=== PATIENT | female | born 1930 | race Asian ===

== ENCOUNTER 2017-10-19 11:47 | Emergency (ER) | payer OTHER ==
[~2017-10-19] VITALS: Ht 152.4 cm; Wt 55.4 kg
[~2017-10-19 11:47] MED LIST: FSM70 PO; IBUP-103 PO; MULTTAB58 PO
[2017-10-19 11:55] VITALS: TEMP 37.3; Ht 152.4 cm; Wt 55.4 kg
[2017-10-19 12:16] VITALS: O2SAT 99
[2017-10-19] MEDS ORDERED: ONDANSETRON INJ 2 MG/ML 2 ML VIAL IV STA ×2 (12:35→14:08)
[2017-10-19 12:37] LABS: BASO % 0.2 %; BASO ABS # 0.02 K/uL (0-0.2); EOS % 0.5 %; EOS ABS # 0.05 K/uL (0-0.5); HEMOGLOBIN 13.4 g/dL (12.0-16.0); IG# 0.02 K/uL (0.00-0.02); LYMPH % 21.6 %; MEAN CELL VOLUME 95.5 fL (80-100); MEAN CORPUSCULAR HGB CONC 33.5 g/dl (32-36); MEAN PLATELET VOLUME 11.3 fL (7.4-10.4); MONO % 8.8 %; MONO ABS # 0.81 K/uL (0.11-0.59); NEUT % 68.7 %; NEUT ABS # 6.34 K/uL (1.4-6.5); PLATELET COUNT 210 K/uL (130-400); RED CELL DISTRIBUTION WIDTH CV 12.5 % (11.5-14.5); RED CELL DISTRIBUTION WIDTH SD 42.9 fL (36.4-46.3); WHITE BLOOD COUNT 9.24 K/uL (4.8-10.8)
--- NOTE | 2017-10-19 12:37 | DIAGNOSTIC IMAGING REPORT ---
CHEST ONE VIEW PORTABLE HISTORY: EVALUATE WEAKNESS COMPARISON: Chest 11/12/2010. FINDINGS: Low lung volumes. The heart is normal in size. Mild diffuse interstitial thickening. Bibasilar patchy densities. Old, healed left-sided rib fractures. No pneumothorax. IMPRESSION: 1. Low lung volumes with patchy bibasilar densities. This could represent atelectasis or pneumonia. 2. Mild interstitial thickening. Electronically signed by: Luciano Her M.D. 10/19/2017 12:36 PM Dictated Date/Time: 10/19/2017 12:35 PM
[2017-10-19 12:47] LABS: INR 0.9 (0.9-1.1); PTT PATIENT 25.9 SECONDS (21.0-31.0)
[2017-10-19 12:55] LABS: BLOOD UREA NITROGEN 12 mg/dl (7-18); CREATININE 0.74 mg/dl (0.60-1.20); GLUCOSE 74 mg/dl (70-99)
[2017-10-19 12:56] LABS: ALBUMIN 3.7 gm/dl (3.4-5.0); ALT/SGPT 22 U/L (12-78); AST/SGOT 20 U/L (15-37); CALCIUM 8.9 mg/dl (8.5-10.1); CARBON DIOXIDE 26 mmol/L (21-32); POTASSIUM 3.8 mmol/L (3.5-5.1); SODIUM 138 mmol/L (136-145)
[2017-10-19] MEDS: HYDROmorphone INJ 0.5 MG/0.5 ML SYR IV PRN ×2 (12:59→17:37)
[2017-10-19 13:06] LABS: ALKALINE PHOSPHATASE 69 U/L (45-117); CKMB 0.8 ng/ml (0.5-3.6); TOTAL PROTEIN 8.2 gm/dl (6.4-8.2)
--- NOTE | 2017-10-19 13:55 | EMERGENCY ROOM VISIT NOTE ---
History Report prepared by Guadalupe: Solomon Maxwell Under the Supervision of: Dr. Victor Hugo Noel M.D. First contact with patient: 12:08 Chief Complaint: NECK PAIN Stated Complaint: SEVERE NECK PAIN, SLIGHT CHEST PAIN History of Present Illness This HPI was obtained via translation from the patient's son. The patient is an 87 year old female who presents to the Emergency Room with complaints of constant pain in the left side of the neck that she has been experiencing for the past three days. Per the patient's son the patient's pain starts in her left shoulder and radiates up into the left neck and up the back of her head. She rates the pain as a 9/10 in severity. The pain is worsened with range of motion of the neck. The son notes that she has not been able to drink because tilting her head back hurts. She denies any numbness or weakness in her hands, but she has been dizzy when she is laying down recently. The patient did have some chest pain yesterday, but not today. She has tried over the counter NSAIDs without any relief. She denies and further LOC, fevers, chills, diaphoresis, visual changes, breathing difficulties, nausea, vomiting, abdominal pain, melena, hematochezia, urinary symptoms, numbness, weakness, lymphadenopathy, rash, or other complaints. Source of History: family (son) Onset: 3 days [employer] Position: neck (left), shoulder (left) Symptom Intensity: 9/10 Timing: constant Modifying Factors (Worsening): other (ROM of neck) Associated Symptoms: No SOB, No nausea, No vomiting, No abdominal pain Review of Systems See HPI for pertinent positives and negatives. A total of ten systems were reviewed and were otherwise negative. Past Medical & Surgical Medical Problems: (1) Arthritis (2) Bulging of cervical intervertebral disc Arthritis Bulging of cervical intervertebral disc Family History Omitted secondary to age Social History Smoking Status: Never Smoker Alcohol Use: none Drug Use: none Current/Historical Medications Scheduled Alendronate (Fosamax *), 70 MG PO WK Ibuprofen Tab (Advil), 400 MG PO Q8HR PRN Multiple Vitamin (Multivitamin), 1 TAB PO DAILY Prednisone (Prednisone), 20 MG PO DAILY Scheduled PRN Hydrocodone/Acetaminophen 5MG/325MG (Belcher 5MG/325MG), 0.5-1 TABLET PO Q6 PRN for Pain Allergies Coded Allergies: No Known Allergies (Unverified , 03/02/12) Physical Exam Vital Signs Date Time Temp Pulse Resp B/P (MAP) Pulse Ox O2 Delivery O2 Flow Rate FiO2 10/19/17 17:51 74 16 158/87 92 10/19/17 15:15 74 16 158/85 92 Room Air 10/19/17 13:38 70 20 144/60 92 Room Air 10/19/17 12:59 80 17 158/78 95 Room Air 10/19/17 12:19 83 10/19/17 12:16 99 Room Air 10/19/17 11:55 37.3 81 18 145/94 97 Room Air Physical Exam GENERAL: Awake, alert, well-appearing, in no distress HENT: Normocephalic, atraumatic. Oropharynx unremarkable. EYES: Normal conjunctiva. Sclera non-icteric. NECK: There is paraspinal muscle tenderness to palpation. Patient has limited ROM of the neck secondary to pain. The patient has a positive compression test. Unable to access Spurling's test secondary to pain. RESPIRATORY: Clear to auscultation. CARDIAC: Regular rate, normal rhythm. Extremities warm and well perfused. Pulses equal. ABDOMEN: Soft, non-distended. No tenderness to palpation. No rebound or guarding. No masses. RECTAL: Deferred. MUSCULOSKELETAL: The left shoulder is unremarkable. There is minimal tenderness present over the deltoid aspect and proximal bicep. Extremities are NVI. Chest examination reveals no tenderness. The back is symmetrical on inspection without obvious abnormality. There is no CVA tenderness to palpation. No joint edema. LOWER EXTREMITIES: Calves are equal size bilaterally and non-tender. No edema. No discoloration. NEURO: Normal sensorium. No sensory or motor deficits noted. SKIN: No rash or jaundice noted. Medical Decision & Procedures ER Provider Diagnostic Interpretation: Radiology results as stated below per my review and radiologist interpretation: CHEST ONE VIEW PORTABLE HISTORY: EVALUATE WEAKNESS COMPARISON: Chest 11/12/2010. FINDINGS: Low lung volumes. The heart is normal in size. Mild diffuse interstitial thickening. Bibasilar patchy densities. Old, healed left-sided rib fractures. No pneumothorax. IMPRESSION: 1. Low lung volumes with patchy bibasilar densities. This could represent atelectasis or pneumonia. 2. Mild interstitial thickening. Electronically signed by: Luciano Her M.D. 10/19/2017 12:36 PM Dictated Date/Time: 10/19/2017 12:35 PM MRI OF THE CERVICAL SPINE WITHOUT IV CONTRAST CLINICAL HISTORY: Neck pain. No reported history of trauma. COMPARISON STUDY: CT scan of the cervical spine dated 03/02/2012. TECHNIQUE: MRI of the cervical spine is performed utilizing various T1 and T2-weighted sequences in the axial and sagittal planes. IV contrast was not administered for this examination. The examination is compromised by motion artifact. FINDINGS: Cervical spine: Vertebral body height and alignment are maintained throughout the cervical spine. Marrow signal intensity is slightly heterogeneous. The atlantodental articulation appears maintained. The spinous processes are intact. Mild endplate edema is seen at C6-C7. Intervertebral discs: Degenerative disc desiccation is seen throughout the cervical spine. Mild loss of height is noted at C6-C7. Spinal cord: The cervical spinal cord is normal in morphology and signal intensity. C2-C3: Unremarkable. C3-C4: A small posterior disc osteophyte complex minimally effaces the ventral subarachnoid space. Uncovertebral and facet arthropathy cause moderate bilateral neural foraminal stenosis. C4-C5: A posterior disc osteophyte complex effaces the ventral subarachnoid space. Facet arthropathy causes minimal left-sided neural foraminal stenosis. C5-C6: A posterior disc osteophyte complex abuts the ventral cord. Predominantly uncovertebral arthropathy causes mild right neural foraminal stenosis. C6-C7: A posterior disc osteophyte complex abuts the ventral cord. Uncovertebral and facet arthropathy cause moderate bilateral neural foraminal stenosis. C7-T1: Unremarkable. Soft tissues: The prevertebral and paraspinous soft tissues are within normal limits. Brain parenchyma: The partially visualized brain parenchyma at the skull base is normal in appearance. Mucosal thickening is noted within the maxillary antrum. IMPRESSION: 1. No acute bony abnormality is seen involving the cervical spine. 2. The cervical spinal cord is normal in morphology and signal intensity. 3. Mild spondylotic change as above, greatest at C5-C6 and C6-C7. See discussion for detailed level by level analysis. Dictated: 10/19/2017 2:55 PM Transcribed: 10/19/2017 3:25 PM [email or web address] Electronically signed by: Leland Denise M.D. 10/19/2017 3:38 PM Dictated Date/Time: 10/19/2017 2:55 PM Laboratory Results 10/19/17 12:10 Red Blood Count 4.19, Mean Corpuscular Volume 95.5, Mean Corpuscular Hemoglobin 32.0, Mean Corpuscular Hemoglobin Concent 33.5, Mean Platelet Volume 11.3, Neutrophils (%) (Auto) 68.7, Lymphocytes (%) (Auto) 21.6, Monocytes (%) (Auto) 8.8, Eosinophils (%) (Auto) 0.5, Basophils (%) (Auto) 0.2, Neutrophils # (Auto) 6.34, Lymphocytes # (Auto) 2.00, Monocytes # (Auto) 0.81, Eosinophils # (Auto) 0.05, Basophils # (Auto) 0.02 10/19/17 12:10 Test 10/19/17 12:10 10/19/17 16:23 White Blood Count 9.24 K/uL (4.8-10.8) Red Blood Count 4.19 M/uL (4.2-5.4) Hemoglobin 13.4 g/dL (12.0-16.0) Hematocrit 40.0 % (37-47) Mean Corpuscular Volume 95.5 fL (80-100) Mean Corpuscular Hemoglobin 32.0 pg (25-34) Mean Corpuscular Hemoglobin Concent 33.5 g/dl (32-36) Platelet Count 210 K/uL (130-400) Mean Platelet Volume 11.3 fL (7.4-10.4) Neutrophils (%) (Auto) 68.7 % Lymphocytes (%) (Auto) 21.6 % Monocytes (%) (Auto) 8.8 % Eosinophils (%) (Auto) 0.5 % Basophils (%) (Auto) 0.2 % Neutrophils # (Auto) 6.34 K/uL (1.4-6.5) Lymphocytes # (Auto) 2.00 K/uL (1.2-3.4) Monocytes # (Auto) 0.81 K/uL (0.11-0.59) Eosinophils # (Auto) 0.05 K/uL (0-0.5) Basophils # (Auto) 0.02 K/uL (0-0.2) RDW Standard Deviation 42.9 fL (36.4-46.3) RDW Coefficient of Variation 12.5 % (11.5-14.5) Immature Granulocyte % (Auto) 0.2 % Immature Granulocyte # (Auto) 0.02 K/uL (0.00-0.02) Prothrombin Time 9.9 SECONDS (9.0-12.0) Prothromb Time International Ratio 0.9 (0.9-1.1) Activated Partial Thromboplast Time 25.9 SECONDS (21.0-31.0) Partial Thromboplastin Ratio 1.0 Anion Gap 6.0 mmol/L (3-11) Est Creatinine Clear Calc Drug Dose 42.6 ml/min Estimated GFR () 85.0 Estimated GFR (Non- 73.4 BUN/Creatinine Ratio 16.2 (10-20) Calcium Level 8.9 mg/dl (8.5-10.1) Magnesium Level 2.2 mg/dl (1.8-2.4) Total Bilirubin 0.9 mg/dl (0.2-1) Direct Bilirubin 0.2 mg/dl (0-0.2) Aspartate Amino Transf (AST/SGOT) 20 U/L (15-37) Alanine Aminotransferase (ALT/SGPT) 22 U/L (12-78) Alkaline Phosphatase 69 U/L (45-117) Total Creatine Kinase 58 U/L (26-192) Creatine Kinase MB 0.8 ng/ml (0.5-3.6) Creatine Kinase MB Ratio 1.4 (0-3.0) Troponin I < 0.015 ng/ml (0-0.045) Total Protein 8.2 gm/dl (6.4-8.2) Albumin 3.7 gm/dl (3.4-5.0) Thyroid Stimulating Hormone (TSH) 2.460 uIu/ml (0.300-4.500) Urine Color YELLOW Urine Appearance CLEAR (CLEAR) Urine pH 6.5 (4.5-7.5) Urine Specific Leonard 1.018 (1.000-1.030) Urine Protein NEG (NEG) Urine Glucose (UA) NEG (NEG) Urine Ketones 1+ (NEG) Urine Occult Blood NEG (NEG) Urine Nitrite NEG (NEG) Urine Bilirubin NEG (NEG) Urine Urobilinogen NEG (NEG) Urine Leukocyte Esterase NEG (NEG) Laboratory results reviewed by me Medications Administered Medications (Trade) Dose Ordered Sig/Sabrina Route Start Time Stop Time Status Last Admin Dose Admin Hydromorphone HCl (Dilaudid Inj) 0.25 mg Q15M PRN IV 10/19/17 12:45 10/19/17 18:39 DC 10/19/17 17:37 0.25 MG Ondansetron HCl (Zofran Inj) 4 mg NOW STAT IV 10/19/17 12:35 10/19/17 12:39 DC 10/19/17 12:56 4 MG Ondansetron HCl (Zofran Inj) 4 mg NOW STAT IV 10/19/17 14:08 10/19/17 14:09 DC 10/19/17 14:30 4 MG Acetaminophen/ Hydrocodone Bitart (Belcher 5/325 Tab) 0.5 tab NOW STAT PO 10/19/17 17:19 10/19/17 17:21 DC 10/19/17 17:41 0.5 TAB Prednisone (PredniSONE TAB) 20 mg NOW STAT PO 10/19/17 17:19 10/19/17 17:21 DC 10/19/17 17:36 20 MG ECG Indication: other (Neck pain) Rate (beats per minute): 81 Rhythm: normal sinus Findings: no acute ischemic change, no ectopy Change: FOLLOW UP EKG ON SAME VISIT: NSR, 70, no ischemic change, no ectopy, no change from previous. Patient's electrocardiogram was interpreted by me. ED Course 1225: The patient was evaluated in room C6. A complete history and physical exam was performed. 1235: Ordered Zofran 4 mg IV. 1245: Ordered Dilaudid 0.25 mg IV. 1408: Ordered Zofran Inj 4mg IV. 1719: Ordered Prednisone 20 mg PO, Hydrocodone 0.5 tab PO. 1738: I reevaluated the patient. Discussed results and discharge instructions with her son: He states that She verbalized understanding and agreement. The patient is ready for discharge. Medical Decision Prior records/ancillary studies reviewed. Triage Nursing notes reviewed and agree them. Additional history obtained from the family. The patient's history was concerning for neck pain. Differential diagnosis: Etiologies such as herniated disc, fracture, vascular disease, metastatic disease, cord compression, discitis, infection, cardiac sources, gastrointestinal, lumbago, as well as others were entertained. Physical findings: As above. Reproducible pain with movement of the neck. ER treatment provided: IV Zofran IV Dilaudid times multiple doses On reassessment the patient felt better. Diagnostics interpreted by me: ECG: Normal sinus 2 The labs revealed an unremarkable CBC, chemistry panel, LFTs, and cardiac markers. Imaging studies: Chest x-ray and MRI as above. The patient has several herniated disc with mild effacement of the cord. This could explain her symptoms quite easily. The patient was given Zofran and a dose of Dilaudid. This may feel better. She declined additional analgesia as the first of made her nauseated. She has had this problem in the past with Percocet. She was given a soft cervical collar for support. He is very easily reproducible with the most minimal change in her neck rotation, flexion or extension. She will need referral to orthopedic spine. This was recommended. She was offered a dose of hydrocodone and a prescription was generated for the same. A low dose of prednisone was also offered. The patient worsens in any way she will come back to emergency department for reevaluation. Blood Pressure Screening Patient's blood pressure: Elevated blood pressure Impression Primary Impression: Neck pain Additional Impression: Herniated cervical disc Scribe Attestation The scribe's documentation has been prepared under my direction and personally reviewed by me in its entirety. I confirm that the note above accurately reflects all work, treatment, procedures, and medical decision making performed by me. Departure Information Dispostion Home / Self-Care Prescriptions Prednisone (Prednisone) 20 Mg Tab 20 MG PO DAILY for 4 Days, #4 TAB Prov: Victor Hugo Noel MD 10/19/17 Hydrocodone/Acetaminophen 5MG/325MG (Belcher 5MG/325MG) Tab 0.5-1 TABLET PO Q6 Y for Pain, #14 TAB Prov: Victor Hugo Noel MD 10/19/17 Referrals Elder Saenz M.D. (PCP) Forms HOME CARE DOCUMENTATION FORM, IMPORTANT VISIT INFORMATION, WORK / SCHOOL INSTRUCTIONS Patient Instructions My [facility] Additional Instructions DO NOT drive, drink alcohol, operate machinery, or perform dangerous activities today. You were given medications in the ER that can affect your ability to safely function or operate a vehicle. Prednisone 20mg: Once daily until the prescription is finished. It is best to take this earlier in the day as some patients note occasional difficulty falling asleep when taken in the late evening. Hydrocodone/acetaminophen 5/325mg: Take 0.5-1 pills every 6 hours as needed for pain. Avoid additional Acetaminophen/Tylenol, alcohol, operating machinery or dangerous equipment, working on ladders or roofs, DRIVING, or situations where being under the influence may be dangerous. It is recommended to use a stool softener such as Colace, 100mg twice daily while taking this medication to avoid constipation. Rest and avoid heavy lifting until your symptoms resolve and then gradually return to full activity. A good rule of thumb is if it hurts your neck to perform a certain activity, then it should be avoided until you are healthy again. A heating pad, warm compresses, or a hot shower may help with tight muscles and can be done several times a day as needed. Continue current medications. Return to the ER immediately for any chest pain, fever, numbness, tingling, severe pain, loss of control of your bowels or bladder, inability to walk, or as needed. Call orthopedic spine, Dr. Linton at the number listed below tomorrow to set an appointment due to the herniated disks within the neck. Follow up with your primary care physician within 3-5 days for a recheck of your current condition. Problem Qualifiers
--- NOTE | 2017-10-19 15:25 | DIAGNOSTIC IMAGING REPORT ---
MRI OF THE CERVICAL SPINE WITHOUT IV CONTRAST CLINICAL HISTORY: Neck pain. No reported history of trauma. COMPARISON STUDY: CT scan of the cervical spine dated 03/02/2012. TECHNIQUE: MRI of the cervical spine is performed utilizing various T1 and T2-weighted sequences in the axial and sagittal planes. IV contrast was not administered for this examination. The examination is compromised by motion artifact. FINDINGS: Cervical spine: Vertebral body height and alignment are maintained throughout the cervical spine. Marrow signal intensity is slightly heterogeneous. The atlantodental articulation appears maintained. The spinous processes are intact. Mild endplate edema is seen at C6-C7. Intervertebral discs: Degenerative disc desiccation is seen throughout the cervical spine. Mild loss of height is noted at C6-C7. Spinal cord: The cervical spinal cord is normal in morphology and signal intensity. C2-C3: Unremarkable. C3-C4: A small posterior disc osteophyte complex minimally effaces the ventral subarachnoid space. Uncovertebral and facet arthropathy cause moderate bilateral neural foraminal stenosis. C4-C5: A posterior disc osteophyte complex effaces the ventral subarachnoid space. Facet arthropathy causes minimal left-sided neural foraminal stenosis. C5-C6: A posterior disc osteophyte complex abuts the ventral cord. Predominantly uncovertebral arthropathy causes mild right neural foraminal stenosis. C6-C7: A posterior disc osteophyte complex abuts the ventral cord. Uncovertebral and facet arthropathy cause moderate bilateral neural foraminal stenosis. C7-T1: Unremarkable. Soft tissues: The prevertebral and paraspinous soft tissues are within normal limits. Brain parenchyma: The partially visualized brain parenchyma at the skull base is normal in appearance. Mucosal thickening is noted within the maxillary antrum. IMPRESSION: 1. No acute bony abnormality is seen involving the cervical spine. 2. The cervical spinal cord is normal in morphology and signal intensity. 3. Mild spondylotic change as above, greatest at C5-C6 and C6-C7. See discussion for detailed level by level analysis. Dictated: 10/19/2017 2:55 PM Transcribed: 10/19/2017 3:25 PM Yahaira Electronically signed by: Leland Denise M.D. 10/19/2017 3:38 PM Dictated Date/Time: 10/19/2017 2:55 PM
[2017-10-19] MEDS ORDERED: PRED20TA PO (17:16)
[2017-10-19] MEDS ORDERED: HYDR-5688 PO (17:16)
[2017-10-19] MEDS ORDERED: HYDROCODONE/ACETAMOPHEN 5/325MG TAB PO STA (17:19)
[2017-10-19 17:51] VITALS: BP 158/87; PULSE 74; O2SAT 92
== END 2017-10-19 17:51 | disposition home or self-care (01) ==
LOC: C.EDB 11:49 → C.EDC 17:51
DX: M54.2 Cervicalgia (principal); M46.42 Discitis, unspecified, cervical region; M19.90 Unspecified osteoarthritis, unspecified site